=== PATIENT | male | born 1980 | race African-American/Black ===

== ENCOUNTER 2019-08-31 11:32 | Emergency (ER) | payer MEDICAID, SELFPAY ==
--- NOTE | ~2019-08-31 | CT_ITS ---
EXAMINATION: CT lumbar spine wo con DATE: 08/31/2019 12:54 INDICATION: Back pain radiating down the left leg TECHNIQUE: Computed tomography (CT) of the lumbar spine was performed without intravenous contrast. A utomated exposure control and iterative reconstruction technique were employed. The dose-length produ ct was 944.47 mGy-cm. COMPARISON: None FINDINGS: 6 mm retrolisthesis L4 on L5 and 6 mm retrolisthesis L5 on S1. Vertebral body heights are n ormal. No fracture. Mild disc height loss at L5-S1, minimal at L4-L5. Vertebral soft tissues are unre markable. The following disc levels are specifically discussed: T11-T12: The disc does not extend beyond the endplate margin. There is minimal bilateral facet joint osteoarthritis. There is no neural foraminal stenosis. There is no central canal stenosis. T12-L1: The disc does not extend beyond the endplate margin. There is minimal right and mild left fac et joint osteoarthritis. There is no neural foraminal stenosis. There is no central canal stenosis. L1-L2: The disc does not extend beyond the endplate margin. There is mild bilateral facet joint osteo arthritis. There is no neural foraminal stenosis. There is no central canal stenosis. L2-L3: Disc is mildly bulging. There is mild bilateral facet joint osteoarthritis. There is no neural foraminal stenosis. There is minimal central canal stenosis. L3-L4: Disc is mildly bulging. There is mild bilateral facet joint osteoarthritis. There is no neural foraminal stenosis. There is mild central canal stenosis. L4-L5: Disc is bulging. There is minimal left facet joint osteoarthritis. There is mild to moderate l eft and mild right neural foraminal stenosis. There is mild central canal stenosis. L5-S1: Disc is bulging. There is no facet joint osteoarthritis. There is moderate bilateral neural fo raminal stenosis. There is no central canal stenosis. IMPRESSION: 1. Mild lumbar spondylosis with 6 mm retrolisthesis L4 on L5 and L5 on S1. Reviewed, dictated and finalized at location A. [facility]
[2019-08-31 11:43] VITALS: BP 133/79; PULSE 73; RESP 18; TEMP 36.9; O2SAT 100
--- NOTE | 2019-08-31 11:59 | ED.GENADULT ---
HPI - General Adult General Chief complaint: Back Pain/Injury Stated complaint: leg pain Time Seen by Provider: 08/31/19 11:56 Source: patient Mode of arrival: ambulatory Limitations: no limitations History of Present Illness HPI narrative: The pt is a 39 y/o male who presents to the ED with c/o lower back pain that began 2-3 months ago. The pt states that the pain was intermittent when it first began but is now constant. The pain radiates down his lt leg down to his lt foot, which is relatively new. He has been seen by his PCP, Dr. Jennifer Mac, about the back pain before it began radiating down his leg. He was also seen at [facility], where he was given muscle relaxers that have not been relieving his pain. The pt reports lt leg numbness/tingling, bilateral leg weakness, and erectile dysfunction, but denies constipation, diarrhea, nausea, vomiting, fever, or chills. He states that he injured his back while carrying dry wall years ago, but denies any recent injury. 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 complaint: Back pain Onset (ago): month(s) (2-3) Location: back Radiation: other (lt leg) Pain Consistency: constant Relieving factors: none Associated symptoms: other (lt leg numbness/tingling, bilateral leg weakness, erectile dysfunction) Related Data Allergies Allergy/AdvReac Type Severity Reaction Status Date / Time No Known Allergies Allergy Verified 08/31/19 11:47 Review of Systems Review of Systems: All systems reviewed & are unremarkable except as noted in HPI and below Constitutional: Constitutional: Denies chills and Denies fever(s) Gastrointestinal: Gastrointestinal: Denies constipation, Denies diarrhea, Denies nausea and Denies vomiting Genitourinary: Genitourinary: Reports erectile dysfunction Musculoskeletal: Musculoskeletal: Reports back pain (lower) Neurologic: Reports other (lt leg numbness/tingling, bilateral leg weakness) [facility] Past Medical History Medical History (Updated 08/31/19 @ 13:38 by Mathew Bond MD) Anxiety Back pain Depression Hemorrhoids History of suicidal ideation Meningioma Seizures Surgical History Surgical History (Updated 08/31/19 @ 13:10 by Dena Phillips) H/O brain surgery meningeal tumor removal Social History Social History (Updated 08/31/19 @ 12:06 by Dena Phillips) Smoking status: Never smoker Gender identity (if verbalized by the patient): Male Exam Const: General: healthy appearing and no acute distress Nutritional Appearance: well nourished HENMT: Mouth: Yes lip normal and Yes moist mucous membranes Eyes: Conjunctivae: conjunctivae normal Pupils: Equal, round and reactive pupils present Resp: Effort & Inspection: normal respiratory effort Auscultation: clear to auscultation bilaterally Cardio: Rate: regular rate Rhythm: regular rhythm Heart sounds: no murmurs GI: GI Palp: Yes Soft to palpation and No Tenderness to palpation present (GI) Auscultation: normal bowel sounds Back/Spine/Pelvis: Back: other (full ROM) Other: straight leg raise bilaterally reproduces pain in lt side Skin: General skin exam: normal color, dry skin and other (warm) Neuro: General: patient oriented x3 Speech: normal speech Extrem: General: full ROM and other (lt gluteal tenderness) Psych: Mental Status: mental status grossly normal Affect: normal affect Course Vital Signs Vital signs: Vital Signs Temperature 36.9 C 08/31/19 11:43 Pulse Rate 73 08/31/19 11:43 Respiratory Rate 18 08/31/19 11:43 Blood Pressure 133/79 08/31/19 11:43 Pulse Oximetry 100 08/31/19 11:43 Temperature 36.9 C 08/31/19 11:43 Pulse Rate 87 08/31/19 14:52 Respiratory Rate 16 08/31/19 14:52 Blood Pressure 142/83 H 08/31/19 14:52 Pulse Oximetry 98 08/31/19 14:52 Medical Decision Making MDM Narrative Medical decision making narrative: History and exam consistent with sciatica. ED unlikel
[2019-08-31] MEDS: CYCLOBENZAPRINE HCL 10 MG TABLET PO (12:50)
[2019-08-31] MEDS: KETOROLAC (*BKC) 60 MG/2 ML VIAL IM (12:50)
[2019-08-31 14:52] VITALS: BP 142/83; PULSE 87; RESP 16; O2SAT 98
== END 2019-08-31 14:55 | disposition home or self-care (01) ==
PROVIDERS: Emergency Provider Emergency Medicine
DX: M54.42 Lumbago with sciatica, left side (principal); M47.816 Spondylosis without myelopathy or radiculopathy, lumbar region
CPT/HCPCS: 72131; 96372; 99284; A9270; J1100; J1885

== ENCOUNTER 2020-05-06 20:42 | Emergency (ER) | payer OTHER, SELFPAY ==
--- NOTE | ~2020-05-06 | XR_ITS ---
EXAMINATION: XR chest 1V portable EXAM DATE: 05/06/2020 22:01 INDICATION: Coughing up sputum. Chills and bodyaches. TECHNIQUE: Portable AP frontal chest x-ray was obtained. There is no prior study for comparison. FINDINGS: The lungs are clear. There are no pleural effusions. The cardiomediastinal silhouette is within normal limits. There is no pneumothorax suspected. The bones and soft tissues are unremarkab le. IMPRESSION: No acute cardiopulmonary findings. Reviewed, dictated and finalized at location G.
[2020-05-06 20:48] VITALS: BP 137/69; PULSE 78; RESP 14; TEMP 36.7; O2SAT 100
[2020-05-06 20:59] VITALS: O2SAT 99
--- NOTE | 2020-05-06 21:45 | ED.URI ---
HPI - URI/Sore Throat General Chief Complaint: Upper Respiratory Infection Stated Complaint: weakness, chills, aches Time Seen by Provider: 05/06/20 21:44 Source: patient Mode of arrival: ambulatory Limitations: no limitations History of Present Illness HPI Narrative: Pt c/o cough, body aches, and chills started yesterday. Pt states that he was exposed to his who tested positive for covid. Pt states he had a covid test yesterday. Denies cp, sob, abd pain, n/v/d or fever. Related Data Home Medications Medication Instructions Recorded Confirmed diphenhydramine HCl [Allergy] 05/06/20 Allergies Allergy/AdvReac Type Severity Reaction Status Date / Time No Known Allergies Allergy Verified 05/06/20 21:00 Review of Systems Review of Systems: All systems reviewed & are unremarkable except as noted in HPI and below Constitutional: Constitutional: Denies body ache(s), Denies excessive sweating, Denies fatigue, Denies fever(s), Denies headache(s), Denies lethargy, Denies malaise, Denies weakness and Denies weight loss Eyes: Eyes: Denies blurry vision, Denies change in vision and Denies loss of vision ENT: Denies dizziness, Denies ear discharge, Denies headache(s), Denies lip swelling, Denies epistaxis, Denies nasal congestion, Denies neck pain, Denies throat swelling and Denies tongue swelling Cardiovascular: Cardiovascular: Denies chest pain, Denies chest pain at rest, Denies chest pain with activity, Denies diaphoresis, Denies rapid heart rate, Denies edema, Denies irregular heart rhythm, Denies lightheadedness, Denies palpitations, Denies dyspnea and Denies dyspnea on exertion Respiratory: Respiratory: Denies chest congestion, Denies hemoptysis, Denies dyspnea and Denies dyspnea on exertion Gastrointestinal: Gastrointestinal: Denies abdominal pain, Denies melena, Denies hematochezia, Denies diarrhea, Denies nausea, Denies vomiting and Denies hematemesis Musculoskeletal: Musculoskeletal: Denies abnormal gait, Denies deformity, Denies joint swelling, Denies limited range of motion, Denies neck pain and Denies numbness Neurologic: Denies Abnormal speech present, Denies abnormal gait, Denies confusion, Denies dizziness, Denies headache(s), Denies focal weakness, Denies loss of vision, Denies numbness, Denies Other visual disturbances, Denies Sensory deficit (Neuro) and Denies weakness Psychiatric: Psychiatric: Denies confusion, Denies depression, Denies auditory hallucinations, Denies homicidal ideation and Denies suicidal ideation Endocrine: Endocrine: Denies cold intolerance, Denies excessive sweating, Denies fatigue, Denies heat intolerance and Denies palpitations Hematologic/Lymphatic: Hematologic/Lymphatic: Denies easy bleeding and Denies easy bruising Allergic/Immunologic: Allergic/Immunologic: Denies lip swelling, Denies throat swelling and Denies tongue swelling Exam Const: General: cooperative, healthy appearing, comfortable, no acute distress, well developed, alert and awake; No confusion Orientation/consciousness: oriented to person, oriented to place, oriented to time, patient oriented x3 and No confusion Limitations: no limitations HENMT: Head: normal to inspection, normocephalic and atraumatic Ears: hearing grossly normal bilaterally, TM normal on the right and TM normal on the left General nose exam: Normal external nose present, Normal nares present and No nasal discharge present Face and sinus: normal facial exam Mouth: Yes Normal oral and palatal mucosa present, Yes lip normal, Yes tongue normal and Yes oropharynx normal Throat: posterior oropharynx normal, tonsils normal and uvula midline Eyes: General: appearance normal, both eyes and all related structures Pupils: Equal, round and reactive pupils present EOM: EOMs intact bilaterally Neck: Neck: normal visual inspection, full ROM, no lymphadenopathy and no meningeal signs Chest: Chest palpation & inspection: normal inspection of the chest Resp: Eff
[2020-05-06 22:43] VITALS: BP 138/94; PULSE 66; RESP 18; O2SAT 100
== END 2020-05-06 22:46 | disposition home or self-care (01) ==
PROVIDERS: Emergency Provider Emergency Medicine; PCP Family Medicine
DX: U07.1 COVID-19 (principal)
CPT/HCPCS: 71045; 99283

== ENCOUNTER 2021-07-13 14:04 | Emergency (ER) | payer OTHER, SELFPAY ==
--- NOTE | 2021-07-13 19:39 | ED.URI ---
HPI - URI/Sore Throat General Chief Complaint: Upper Respiratory Infection Stated Complaint: sore throat/body aches/headache Source: patient and RN notes reviewed Limitations: no limitations History of Present Illness HPI Narrative: The non-smoking/nondrinking vaccinated patient, who is here with multiple other vaccinated sick family members, presents for sore throat with myalgias & headache. Patient has a shorter 1 to 2-day history of scratchy dry cough, mild voice hoarseness, and myagias with headache. He states he recently completed a holiday cruise and multiple members [of the over 40 extended family members] have tested positive for Covid. . No fever measured, cough, vomiting/diarrhea/dehydration, S OB, wheezing, CP.. [id number] testing is negative; explained to family that stronger, accurate PCR test will be ordered Related Data Allergies Allergy/AdvReac Type Severity Reaction Status Date / Time No Known Allergies Allergy Unverified 10/05/20 16:30 Review of Systems Review of Systems: General/Constitutional: No weight loss,fever Eyes: N0: Redness,discharge Ears/Nose/Throat: No: Epistaxis,ear discharge Respiratory: Denies: Hemoptysis Gastrointestinal: No Vomiting, Bleeding-rectal Skin: No Lumps, eruption Neurologic: No Focal Weakness,Sz Hematologic: Denies: Petechiae/Purpura Psychiatric: No: Suicida ideationl All Other Systems: Reviewed and Negative PMFSH Past Medical History Medical History (Updated 07/13/21 @ 17:26 by Buck Love MD) Anxiety Back pain Depression Hemorrhoids History of suicidal ideation Meningioma Seizures Surgical History Surgical History (System 10/05/20 @ 16:30 by Ana Gallo) H/O brain surgery meningeal tumor removal Social History Social History (System 10/05/20 @ 16:30 by Ana Gallo) Smoking status: Never smoker Gender identity (if verbalized by the patient): Male Comments At time of signature, agree with nursing past medical, surgical, social and family history. There is no relevant family history pertinent to the presenting complaint Exam Narrative: General Appearance: Well appearing, Well nourished EYE: PERRLA, Conjunctiva clear Ears: Auditory canal normal, TM normal Nose: Rhinorrhea, Mucousal erythema Mouth/Throat: MM moist, Uvula midline, Pharyngeal erythema Neck: Supple, No adenopathy Respiratory: No respiratory distress, Breath sounds equal, Clear to auscultation Cardiovascular: RRR, No JVD Musculoskeletal: Non tender, Normal strength Skin: Warm, Dry Neurological: A&O x3, CN II-XII intact Psychiatric: Normal mood, Normal affect MDM - URI/Sore Throat Lab Data Labs: Lab Results 07/13/21 Range/Units 16:45 POC SARS CoV-2 Ag Negative (Negative) Discharge Plan Discharge Clinical Impression: Upper respiratory infection Qualifiers: URI type: unspecified URI Qualified Code(s): J06.9 - Acute upper respiratory infection, unspecified Patient Disposition: Home, Self-Care Condition: Stable Instructions: COVID-19 (Coronavirus Disease 2019) (ED) Additional Instructions: If your Covid PCR test turns positive, see attached instructions and: Isolate yourself, and inform close contacts who then should quarantine Take supplement vitamins D, B, C, zinc and baby aspirin daily Call your PMD for consideration for antivirals, monoclonal antibodies Consider getting pulse ox and return for walking pulse oximetry <93% COnsider reviewing youTube 'If you get covid Dr Garcia Consider allow low fevers, then begin treat for fevers > 102 with tylenol You may use OTC preparations like Flonase, cough syrups, etc. Prescriptions: New codeine-guaifenesin 10-100 mg/5 mL liquid 7.5 ml PO Q6H PRN (Reason: cough) Qty: 118 RF: 0 lidocaine HCl [Lidocaine Viscous] 2 % solution 5 ml MUCOUS MEM QID PRN (Reason: pain) Qty: 100 RF: 0 Other Ambulatory Orders: SARS-CoV-2 RNA, Qual RT-PCR (Routine)
== END 2021-07-13 17:45 | disposition home or self-care (01) ==
PROVIDERS: Emergency Provider Emergency Medicine
DX: J06.9 Acute upper respiratory infection, unspecified (principal); Z20.822 Contact with and (suspected) exposure to COVID-19
CPT/HCPCS: 87426; 99213; C9803; G0463